=== PATIENT | male | born 1955 | race Caucasian/White ===

== ENCOUNTER → 2017-07-06 | Outpatient (CLI) | payer BC ==
[~2017-07-06] MED LIST: ASCO500C9 PO; ASPI-757 PO; ATOR40TA24 PO; ATOR40TA69 PO; B SUPPLEMENT; BARIUM SULFATE 176 GM BTL PO ONE; BARIUM SULFATE 340 GM POWD ONE; CAR6.25 PO; CETI-176 PO; CETI10CA8 PO; CIP500 PO; DOCU-416 PO; DOCU50LI19 PO; FLUT16SP19 NS; FLUT16SP20 NS; FLUT1DIS27 IH; FLUT9.9S NS; IBUP-1618 PO; IOPAMIDOL 76% 75 ML INFUS BTL 75 ML ONE; LISI-362 PO; LOSA25TA51 PO; MACA500C2 PO; MELA1TAB17 PO; MELA1TAB27 PO; MORS15 PO; MULT-1081 PO; NITR0.4T3 SL; NS 0.9% 20 ML SDV 40 ML ONE; OMEP-218 PO; OMEP40CA48 PO; PAN40 PO; PSE30 PO; RANI-315 PO; RANI150C17 PO; TAMS0.4C69 PO; TEST100V5 IM; TEST200V IM; TRA50 PO; TRAM-420 PO; TRAM100T22 PO; [UNRECOGNIZED DRUG - CODE] PO; [UNRECOGNIZED DRUG - OTHER]; [UNRECOGNIZED DRUG - OTHER] PO
--- NOTE | 2017-07-06 10:47 | RADIOLOGY IMAGING REPORT ---
FACILITY: [facility] PATIENT NAME: Jake Padron : 1955 MR: [id number] V: [id number] EXAM DATE: ORDERING PHYSICIAN: SUE MEJIA TECHNOLOGIST: Location: [facility] [place] Patient: Jake Padron : 1955 Visit/Account:[id number] Date of Sevice: 07/06/2017 ABDOMEN/PELVIS WITH CONTRAST HISTORY: Recurrent ventral incisional hernia TECHNIQUE: Following administration of IV contrast contiguous axial images acquired through the abdom en/pelvis. Coronal and sagittal reformatting also performed. CONTRAST: 75 mL Isovue-370 COMPARISON: June 07, 2011 FINDINGS: Visualized lung bases: There is linear scarring in the lower lung durant Hepatobiliary: Negative. Spleen: Negative. Adrenals: Negative. Pancreas: Negative. Kidneys ureters or bladder: There is mild perinephric stranding bilaterally. There is a 1 cm nonobst ructing calculus lower pole of the left kidney. Bladder wall is mildly thickened although may be rel ated to underdistention with urine. Genitalia: Prostate gland is moderately enlarged and impinges upon the floor the bladder GI: There is a large hiatal hernia. There is a moderate amount of fecal material seen throughout co shawn which can be seen with constipation. Vessels/spaces/nodes: There are mild vascular calcifications present. There are multiple ventral hernias. Just below the umbilicus there is a ventral hernia containing om entum. The hernia opening measures 2.1 cm in diameter. This appears unchanged There is a tiny umbilical hernia containing fat with opening measuring approximately 9 mm in diameter . This is not appreciated on the prior study. Above the level of the umbilicus in the midline there is a small ventral hernia containing fat with opening measuring 1 cm. .. This also appears unchanged In the upper abdomen there are two ventral hernias one to the right of midline with the hernia openin g containing omentum and measuring 1.2 cm in diameter. . This was not appreciated on the prior study . The one to the left of midline measures 1.7 cm at the opening also containing omentum. This appears unchanged Bones/soft tissues: Please see above discussion concerning the ventral hernias. There are very mild spondylotic changes lumbar spine. Additional findings: None pertinent. IMPRESSION: There are multiple ventral hernias as detailed above. Some appear unchanged. There is a tiny umbili doreen hernia containing fat and a small ventral hernia to the right of midline in the upper abdomen con taining omentum that were not appreciated on the prior study 1 cm nonobstructing calculus lower pole the left kidney. Moderate prostatic enlargement impinging upon the floor the bladder Large hiatal hernia Moderate amount of fecal material throughout colon which can be seen with constipation Report Dictated By: Maren Romero MD at 07/06/2017 10:21 AM Report E-Signed By: Maren Romero MD at 07/06/2017 10:43 AM WSN:[email or web address]
--- NOTE | 2017-07-06 16:57 | RADIOLOGY IMAGING REPORT ---
FACILITY: [facility] - [place] PATIENT NAME: Jake Padron : 1955 MR: [id number] V: [id number] EXAM DATE: ORDERING PHYSICIAN: SUE MEJIA TECHNOLOGIST: Location: [facility] [place] Patient: Jake Padron : 1955 Visit/Account:[id number] Date of Sevice: 07/06/2017 Exam type: UPPER GI SERIES W/O AIR History: Reflux, feeling of aspiration and difficulty swallowing Comparison: None. Findings: Double contrast upper GI series was performed with thick and thin barium. There is marked spasm and mucosal irregularity seen in the hypopharynx and cervical esophagus. There was reflux of the barium into the piriform sinuses. There is a focal narrowing at the junction of the cervical and thoracic esophagus. There is a large hiatal hernia. There is moderate gastroes ophageal reflux observed. No other abnormality the stomach duodenal bulb or duodenal C-loop was seen . The fluoroscopy dose area product was 423.69 micro-Tan per meter squared IMPRESSION: 1. There is marked spasm and mucosal irregularity in the hypopharynx and cervical esophagus. There is also focal narrowing at the junction of the cervical and thoracic esophagus. There is reflux of b arium in the piriform sinuses. There is a large hilar hernia with moderate gastric esophageal reflux. Report Dictated By: Maren Romero MD at 07/06/2017 4:47 PM Report E-Signed By: Maren Romero MD at 07/06/2017 4:54 PM WSN:[email or web address]
== END ==
LOC: CT 02:45
PROVIDERS: ATTEND Surgery
DX: N20.0 Calculus of kidney (principal); N40.0 Benign prostatic hyperplasia without lower urinary tract symptoms; K44.9 Diaphragmatic hernia without obstruction or gangrene; K43.9 Ventral hernia without obstruction or gangrene; K42.9 Umbilical hernia without obstruction or gangrene
CPT/HCPCS: 74177; 74240; J7050; Q9967

== ENCOUNTER 2017-08-02 00:43 | Day surgery (SDC) | payer BC ==
[2017-08-02] VITALS (7 sets, daily range): BP systolic 84–121; BP diastolic 46–98
[~2017-08-02] VITALS: Ht 175.3 cm; Wt 77.1 kg
[~2017-08-02 00:43] MED LIST changes: -BARIUM SULFATE 176 GM BTL PO ONE; -BARIUM SULFATE 340 GM POWD ONE; +CALC500T6 PO; +CHOL200074 PO; -IOPAMIDOL 76% 75 ML INFUS BTL 75 ML ONE; +MAGN250T34 PO; -NS 0.9% 20 ML SDV 40 ML ONE
[2017-08-02] MEDS ORDERED: MIDAZOLAM 2 MG/2 ML VIAL IVP PRN (07:40)
[2017-08-02] MEDS ORDERED: NORMOSOL R SOLN(*) 1000 ML BAG 1,000 ML IV PRN (07:40)
[2017-08-02] MEDS ORDERED: LIDOCAINE/SOD BICARB 8.4% SYR ID ONE (07:40)
--- NOTE | 2017-08-02 09:15 | Short(Outpt) Discharge Summary ---
Discharge Summary Reason for Hosp/Final Diag: (1) GERD (gastroesophageal reflux disease) Status: Chronic Hospital Course & Plan: EGD completed without problems. Departure Discharge to: Home, Self Care Discharge Instructions Home Meds Active Scripts Lisinopril (LISINOPRIL) 10 Mg Tablet, 1 TAB PO QDAY, #90 TAB Prov:MASOUD KEY DNP [facility] 07/07/17 Omeprazole (OMEPRAZOLE) 40 Mg Capsule.dr, 1 TAB PO QDAY for 90 Days, #90 CAP 0 Refills Prov:MASOUD KEY DNP [facility] 06/13/17 Atorvastatin Calcium (ATORVASTATIN CALCIUM) 40 Mg Tablet, 1 TAB PO QDAY for 90 Days, #90 TAB 1 Refill Prov:MASOUD KEY DNP [facility] 06/13/17 Carvedilol (CARVEDILOL) 6.25 Mg Tab, 1 TAB PO QDAY for 90 Days, #90 TAB 1 Refill Prov:MASOUD KEY DNP [facility] 06/13/17 Cetirizine Hcl (ZYRTEC) 10 Mg Tablet, 1 TAB PO QDAY for 90 Days, #90 TAB 3 Refills Prov:MASOUD KEY DNP [facility] 06/13/17 Fluticasone Prop 50 Mcg Ns (FLONASE 50 MCG NS) 16 Gm [place].susp, 2 SPRAYS NS QDAY, #1 BOT 11 Refills Prov:MASOUD KEY DNP [facility] 06/13/17 Tramadol Hcl (TRAMADOL HCL) 50 Mg Tablet, 1 TAB PO Q4-6H Y for PAIN, #60 TAB 0 Refills Prov:MASOUD KEY DNP [facility] 06/13/17 Testosterone Cypionate (TESTOSTERONE CYPIONATE) 200 Mg/1 Ml Vial, 200 MG IM Q2WK , #6 VIAL 3 Refills Prov:MASOUD KEY DNP [facility] 06/12/17 Reported Medications Cholecalciferol (Vitamin D3) (VITAMIN D-3) 2,000 Unit Capsule, 2000 UNIT PO QDAY , CAPSULE 07/24/17 Magnesium Oxide (MAGNESIUM) 250 Mg Tablet, 500 MG PO QDAY, TAB 07/24/17 Calcium Carbonate (CALCIUM) 500 Mg Tablet, 1000 MG PO QDAY 07/24/17 [Oshwaganda] No Conflict Check 06/12/17 Docusate Sodium (COLACE) 100 Mg Capsule, 100 MG PO BID, CAPSULE 04/11/17 Melatonin/Pyridoxine (MELATONIN 3 MG TABLET) 1 Each Tablet, 2 EACH PO HS 08/28/14 Aspirin (ASPIRIN) 325 Mg Tablet, 325 MG PO QDAY, TAB 08/28/14 Ascorbic Acid (VITAMIN C) 500 Mg Capsule.er, 500 MG PO QDAY 08/28/14 Multivitamin (MULTI-DAY VITAMINS) 1 Each Tablet, 1 EACH PO QDAY 08/28/14 Follow up Referrals: General Surgery - 08/15/17 @ Surgery, General with Sue Mejia Md You have a follow up appointment scheduled with Dr. Mejia on 08/15/17, at 11: 00am. Diet: Regular Activity: As Tolerated Problem Qualifiers (1) GERD (gastroesophageal reflux disease): Esophagitis presence: without esophagitis Qualified Codes: K21.9 - Gastro- esophageal reflux disease without esophagitis SUE MEJIA MD Aug 02, 2017 09:15
[2017-08-02] MEDS ORDERED: PROPOFOL(*)1000 MG/100 ML VIAL 100 ML ONE (12:36)
== END 2017-08-02 10:45 | disposition home or self-care (01) ==
LOC: OR 00:43
PROVIDERS: ATTEND Surgery
DX: K44.9 Diaphragmatic hernia without obstruction or gangrene (principal)
CPT/HCPCS: 43235; J2704

== ENCOUNTER → 2017-10-03 | Outpatient (CLI) | payer BC ==
--- NOTE | 2017-10-03 14:39 | EKG ---
FACILITY: [facility] [place] PATIENT NAME: SAHARA DUBON : [id number] MR: [id number] V: [id number] EXAM DATE: ORDERING PHYSICIAN: JOHN PEDROZA TECHNOLOGIST: AMARI Marino Reason : GASTRIC FELUX Blood Pressure : / mmHG Vent. Rate : 105 BPM Atrial Rate : 105 BPM P-R Int : 154 ms QRS Dur : 122 ms QT Int : 360 ms P-R-T Axes : 046 200 019 degrees QTc Int : 475 ms Sinus tachycardia Right bundle branch block Abnormal ECG When compared with ECG of 11-APR-2017 20:19, Relatively unchanged Confirmed by LAUREN WEST ([id number]) on 10/03/2017 4:18:50 PM Referred By: Confirmed By:LAUREN WEST
== END ==
LOC: LAB 14:14
PROVIDERS: ATTEND Surgery
DX: I45.10 Unspecified right bundle-branch block (principal); R00.0 Tachycardia, unspecified; R94.31 Abnormal electrocardiogram [ECG] [EKG]; K21.9 Gastro-esophageal reflux disease without esophagitis; K44.9 Diaphragmatic hernia without obstruction or gangrene; K43.2 Incisional hernia without obstruction or gangrene
CPT/HCPCS: 36415; 82310; 82374; 82435; 82565; 82947; 84132; 84295; 84520; 85027; 93005

== ENCOUNTER 2017-10-07 11:54 | Emergency (ER) | payer BC ==
[2017-10-07] MEDS ORDERED: CAR6.25 PO (12:08)
[2017-10-07] MEDS ORDERED: LORazepam 2 MG/ML VIAL IVP ONE (12:10)
[2017-10-07] MEDS ORDERED: fentaNYL CITR 100 MCG/2 ML AMP IVP ONE (12:10)
--- NOTE | 2017-10-07 12:35 | ER Report ---
History and Physical Time Seen By MD: 12:00 Hx. of Stated Complaint: Pt having hernia repair on monday at [facility]. Pt woke up with severe abdominal pain and patient states abdomen is distended and normally appears flat. HPI/ROS CHIEF COMPLAINT: Hernia pain HISTORY OF PRESENT ILLNESS: Patient is a 62-year-old male who presents the ED with complaint of an incarcerated hernia. He states that he has been having troll with an umbilical hernia in the past few years. He states that he has had to come to the emergency department 4 times total for this to have it reduced. He states that normally he is able to reduce his umbilical hernia at home but states that he was unable to do that today. He states that he woke up with this about 4 hours ago and has been having increasing pain. He denies any nausea or vomiting. He states that he has had multiple abdominal surgeries in the past but none for his umbilical hernia. He is at she scheduled to have his umbilical hernia repaired in 3 days at [facility]. Patient states he just wants a medication and to have this reduced here. REVIEW OF SYSTEMS: Constitutional: No fever, no chills. Cardiovascular: No chest pain, no palpitations. Respiratory: No cough, no shortness of breath. Gastrointestinal: See history of present illness. Genitourinary: No hematuria. Musculoskeletal: No back pain. Skin: No rashes. Neurological: No headache. Allergies: Coded Allergies: propoxyphene (Verified Allergy, Intermediate, HALLUCINATIONS, 04/11/17) Home Meds Active Scripts Testosterone Cypionate (TESTOSTERONE CYPIONATE) 200 Mg/1 Ml Vial, 200 MG IM Q2WK , #6 VIAL 3 Refills Prov:MASOUD KEY DNP, FNP-BC 08/29/17 Lisinopril (LISINOPRIL) 10 Mg Tablet, 1 TAB PO QDAY, #90 TAB Prov:MASOUD KEY DNP, FNP-BC 07/07/17 Omeprazole (OMEPRAZOLE) 40 Mg Capsule., 1 TAB PO QDAY for 90 Days, #90 CAP 0 Refills Prov:MASOUD KEY DNP, FNP-BC 06/13/17 Atorvastatin Calcium (ATORVASTATIN CALCIUM) 40 Mg Tablet, 1 TAB PO QDAY for 90 Days, #90 TAB 1 Refill Prov:MASOUD KEY DNP, FNP-BC 06/13/17 Carvedilol (CARVEDILOL) 6.25 Mg Tab, 1 TAB PO QDAY for 90 Days, #90 TAB 1 [facility] 06/13/17 Cetirizine Hcl (ZYRTEC) 10 Mg Tablet, 1 TAB PO QDAY for 90 Days, #90 TAB 3 Refills Prov:[facility]ASOUD G[facility]ales [facility] 06/13/17 Fluticasone Prop 50 Mcg Ns (FLONASE 50 MCG NS) 16 Gm [place].susp, 2 SPRAYS NS QDAY, #1 BOT 11 Refills Prov:[facility]OUD [facility] 06/13/17 Tramadol Hcl (TRAMADOL HCL) 50 Mg Tablet, 1 TAB PO Q4-6H Y for PAIN, #60 TAB 0 Refills Prov:[facility]ASOUD [facility]ales [facility] 06/13/17 Reported Medications Carvedilol (CARVEDILOL) 6.25 Mg Tab, 6.25 MG PO BID, TAB 10/07/17 Cholecalciferol (Vitamin D3) (VITAMIN D-3) 2,000 Unit Capsule, 2000 UNIT PO QDAY , CAPSULE 07/24/17 Magnesium Oxide (MAGNESIUM) 250 Mg Tablet, 500 MG PO QDAY, TAB 07/24/17 Calcium Carbonate (CALCIUM) 500 Mg Tablet, 1000 MG PO QDAY 07/24/17 [Oshwaganda] No Conflict Check 06/12/17 Docusate Sodium (COLACE) 100 Mg Capsule, 100 MG PO BID, CAPSULE 04/11/17 Melatonin/Pyridoxine (MELATONIN 3 MG TABLET) 1 Each Tablet, 2 EACH PO HS 08/28/14 Aspirin (ASPIRIN) 325 Mg Tablet, 325 MG PO QDAY, TAB 08/28/14 Ascorbic Acid (VITAMIN C) 500 Mg Capsule.er, 500 MG PO QDAY 08/28/14 Multivitamin (MULTI-DAY VITAMINS) 1 Each Tablet, 1 EACH PO QDAY 08/28/14 Reviewed Nurses Notes: Yes Old Medical Records Reviewed: Yes Hx Smoking: No Smoking Status: Never Smoker Hx Substance Use Disorder: No Hx Alcohol Use: No Constitutional Vital Sign - Last 24 Hours 10/07/17 11:59 Temp 98.7 Pulse 83 Resp 16 B/P (MAP) 128/86 Pulse Ox 96 O2 Delivery Room Air Physical Exam General Appearance: The patient is alert, has no immediate need for airway protection and no signs of toxicity. Patient appears to be in some mild distress. Eyes: Pupils equal and round no pallor or injection. ENT, Mouth: Mucous membranes are moist. Respiratory: There are no retractions, lungs are clear to auscultation. Cardiovascular: Regular rate and rhythm. Gastrointestinal: There is an obvious umbilical hernia that is slightly off to the left side. This area is tender to palpation. Normal bowel sounds in all 4 quadrants. Skin: Warm and dry, no rashes. Musculoskeletal: Neck is supple non tender. Extremities are nontender, nonswollen and have full range of motion. DIFFERENTIAL DIAGNOSIS: After history and physical exam differential diagnosis was considered for abdominal pain including but not limited to appendicitis, cholecystitis, gastritis and urinary tract infection. Medical Decision Making Data Points Result Diagram: 10/07/17 1236 10/07/17 1236 Laboratory Hematology Test 10/07/17 12:36 Red Blood Count 5.27 M/uL (4.00-5.60) Mean Corpuscular Volume 93.9 fL (80.0-96.0) Mean Corpuscular Hemoglobin 32.2 pg (26.0-33.0) Mean Corpuscular Hemoglobin Concent 34.3 g/dL (32.0-36.0) Red Cell Distribution Width 12.6 % (11.5-14.5) Mean Platelet Volume 7.8 fL (7.2-11.1) Prothrombin Time 13.2 seconds (12.0-14.4) Prothromb Time International Ratio 1.00 Activated Partial Thromboplast Time 30 seconds (23-35) Sodium Level 139 mmol/L (137-145) Potassium Level 4.7 mmol/L (3.5-5.0) Chloride Level 100 mmol/L (98-107) Carbon Dioxide Level 27 mmol/L (22-30) Blood Urea Nitrogen 14 mg/dl (9-21) Creatinine 1.20 mg/dl (0.66-1.25) Glomerular Filtration Rate Calc > 60.0 Random Glucose 91 mg/dl (75-110) Calcium Level 9.5 mg/dl (8.4-10.2) Total Bilirubin 0.6 mg/dl (0.2-1.3) Aspartate Amino Transf (AST/SGOT) 33 U/L (0-35) Alanine Aminotransferase (ALT/SGPT) 31 U/L (0-56) Alkaline Phosphatase 105 U/L (0-126) Total Protein 7.9 gm/dl (6.3-8.2) Albumin 3.9 g/dl (3.5-5.0) Chemistry Test 10/07/17 12:36 White Blood Count 5.3 k/uL (4.5-11.0) Red Blood Count 5.27 M/uL (4.00-5.60) Hemoglobin 17.0 g/dL (14.0-18.0) Hematocrit 49.5 % (42.0-52.0) Mean Corpuscular Volume 93.9 fL (80.0-96.0) Mean Corpuscular Hemoglobin 32.2 pg (26.0-33.0) Mean Corpuscular Hemoglobin Concent 34.3 g/dL (32.0-36.0) Red Cell Distribution Width 12.6 % (11.5-14.5) Platelet Count 218 K/uL (150-450) Mean Platelet Volume 7.8 fL (7.2-11.1) Prothrombin Time 13.2 seconds (12.0-14.4) Prothromb Time International Ratio 1.00 Activated Partial Thromboplast Time 30 seconds (23-35) Glomerular Filtration Rate Calc > 60.0 Calcium Level 9.5 mg/dl (8.4-10.2) Total Bilirubin 0.6 mg/dl (0.2-1.3) Aspartate Amino Transf (AST/SGOT) 33 U/L (0-35) Alanine Aminotransferase (ALT/SGPT) 31 U/L (0-56) Alkaline Phosphatase 105 U/L (0-126) Total Protein 7.9 gm/dl (6.3-8.2) Albumin 3.9 g/dl (3.5-5.0) Coagulation Test 10/07/17 12:36 Prothrombin Time 13.2 seconds Prothromb Time International Ratio 1.00 Activated Partial Thromboplast Time 30 seconds ED Course/Re-evaluation ED Course Will obtain labs. Patient will be given 50 g of fentanyl IV and 1 mg Ativan IV and will attempt reduction. 10/07/2017 1:14:37 pm - manual reduction of the umbilical hernia was completed with pt in the Trendelenburg position. This was successful. Patient tolerated procedure well. Decision to Disposition Date: October 07, 2017 Decision to Disposition Time: 13:14 Depart Departure Latest Vital Signs Vital Signs Date Time Temp Pulse Resp B/P (MAP) Pulse Ox O2 Delivery O2 Flow Rate FiO2 10/07/17 11:59 98.7 83 16 128/86 96 Room Air Impression: Primary Impression: Strangulated umbilical hernia Condition: Improved Disposition: HOME OR SELF-CARE Referrals: MASOUD KEY DNP, CHIEF CLOTH FINISHING RANGE OPERATOR-BC (PCP) Patient Instructions: Umbilical Hernia (ED) Additional Instructions: Follow-up with surgery as scheduled in 3 days. If having any worsening or concerning symptoms may return to the emergency department. JOSE VALENTIN PA-C October 07, 2017 12:35
[2017-10-07 13:00] VITALS: BP 115/86
== END 2017-10-07 13:26 | disposition home or self-care (01) ==
LOC: ER 12:18
DX: K42.0 Umbilical hernia with obstruction, without gangrene (principal)
CPT/HCPCS: 85027; 85610; 85730; 96374; 96375; 99284; J2060; J3010; 82040; 82247; 82310; 82374; 82435; 82565; 82947; 84075; 84132; 84155; 84295; 84450; 84460; 84520

== ENCOUNTER → 2017-10-20 | Outpatient (CLI) | payer BC ==
[~2017-10-20] MED LIST changes: +DIAZ-308 PO; +LEVO750T44 PO
== END ==
LOC: LAB 10:44
PROVIDERS: ATTEND Internal Medicine Cardiovascular Disease
DX: I25.10 Atherosclerotic heart disease of native coronary artery without angina pectoris (principal)
CPT/HCPCS: 36415; 83880

== ENCOUNTER → 2017-11-13 | Outpatient (CLI) | payer BC | LOC: NUC 00:59 | PROVIDERS: ATTEND Internal Medicine Cardiovascular Disease | DX: I25.10 Atherosclerotic heart disease of native coronary artery without angina pectoris (principal) ==

== ENCOUNTER → 2018-03-26 | Outpatient (CLI) | payer BC ==
[~2018-03-26] MED LIST changes: +PANT40TA65 PO; +REGADENOSON 0.4 MG/5 ML SYR ONE; +TAMS0.4C25 PO
--- NOTE | 2018-03-26 17:49 | RADIOLOGY IMAGING REPORT ---
[place] [facility] [place]: [place] Padron : 1955 MR: [id number] V: [id number] EXAM DATE: ORDERING PHYSICIAN: NENITA JO TECHNOLOGIST: Location: [facility] Patient: Jake Padron : 1955 Visit/Account:[id number] Date of Sevice: 03/26/2018 EXAMINATION: Single isotope SPECT imaging with regadenoson infusion and gated SPECT imaging. DATE OF EXAMINATION: 03/26/2018. DATE OF INTERPRETATION: 03/26/2018. REQUESTING PHYSICIAN: NENITA JO. INDICATION: The patient is a 62-year-old male evaluated for CAD. PROCEDURE: After informed consent the patient received an intravenous injection of 12.4 mCi of Tc-99 m sestamibi followed at an appropriate time interval by rest imaging. The patient then subsequently received an intravenous infusion of 0.4 mg of regadenoson per protocol without complication. Resting heart rate was 83 bpm with a peak heart rate of 114 bpm. Blood pressure at rest was 98 / 69 and fol lowing infusion was 110 / 73. Baseline EKG demonstrates sinus rhythm with right bundle branch block. There were no EKG changes of ischemia following infusion. Symptoms were nonspecific. The patient then received an intravenous injection of 28.7 mCi of Tc-99m sestamibi followed by stress imaging. RAW DATA: Examination of the summed raw data revealed a good quality study. MYOCARDIAL PERFUSION: The tomographic images demonstrate normal perfusion rest and stress. GATED IMAGES: The gated images demonstrate normal regional wall motion and thickening LVEF 61%. IMPRESSION: 1. Nondiagnostic Lexiscan stress ECG 2. Normal myocardial perfusion scan. 3. Normal LV systolic function; LVEF 61%. Report Dictated By: Clem Rodriguez MD at 03/26/2018 5:40 PM Report E-Signed By: Clem Rodriguez MD at 03/26/2018 5:45 PM WSN:[id number]
--- NOTE | 2018-03-26 19:35 | RT STRESS TEST REPORT ---
[place] [facility] [place] NAME: SAHARA DUBON : [id number] MR: [id number] V: [id number] EXAM DATE: ORDERING PHYSICIAN: JOSE J GARCIA TECHNOLOGIST: [employer] Time: 2018-03-26 14:27:59 Total Exercise Time: 00:01:00 Test Indications: CAD Medications: SEE NUC MED SHEET Protocol: LEXISCAN Max HR: 120 BPM 76% of Pred: 156 BPM Max BP: 111/073 mmHG Max Work Load: 1.0 METS The patient has a baseline RBBB. There was no chest pain during the test and no ST depression. See the nuclear images for details. Confirmed by LAUREN WEST ([id number]) on 03/26/2018 7:35:40 PM Referred By: Jose J Garcia Overread By: LAUREN EWST
== END ==
LOC: NUC 03:16
PROVIDERS: ATTEND Internal Medicine Cardiovascular Disease
DX: I25.10 Atherosclerotic heart disease of native coronary artery without angina pectoris (principal); I45.10 Unspecified right bundle-branch block
CPT/HCPCS: 78452; 93017; A9500; J2785

== ENCOUNTER → 2018-06-08 | Outpatient (CLI) | payer MEDICARE, OTHER ==
[~2018-06-08] MED LIST changes: -REGADENOSON 0.4 MG/5 ML SYR ONE
== END ==
LOC: LAB 11:22
PROVIDERS: ATTEND Surgery
DX: L82.1 Other seborrheic keratosis (principal)
CPT/HCPCS: 88305

== ENCOUNTER → 2018-06-29 | Outpatient (CLI) | payer MEDICARE, OTHER ==
[~2018-06-29] MED LIST changes: +TEST100V6 IM
--- NOTE | 2018-06-29 15:06 | RADIOLOGY IMAGING REPORT ---
FACILITY: [facility] PATIENT NAME: Jake Padron : 1955 MR: [id number] V: [id number] EXAM DATE: ORDERING PHYSICIAN: JONATHAN WILBURN TECHNOLOGIST: Location: [facility] Patient: Jake Padron : 1955 Visit/Account:[id number] Date of Sevice: 06/29/2018 Exam type: KUB SINGLE VIEW ABDOMEN History: kidney stone Comparison: CT of abdomen pelvis fibroid first 2018. Findings: Bowel gas pattern is nonspecific. Projecting over the inferior left renal shadow is a 1.25 x 0.8 cm calcification likely representing calcification seen on the prior CT there is no gross evidence of or ganomegaly. Visualized bones are unremarkable for age IMPRESSION: 1. There is a 1.25 x 0.8 cm calcification projecting over the inferior left renal shadow likely the calcification seen on the prior CT Report Dictated By: Maren Romero MD at 06/29/2018 2:54 PM Report E-Signed By: Maren Romero MD at 06/29/2018 3:01 PM WSN:[email or web address]
== END ==
LOC: RAD 14:24
PROVIDERS: ATTEND Urology
DX: N20.0 Calculus of kidney (principal)
CPT/HCPCS: 74018

== ENCOUNTER → 2018-09-27 | Outpatient (CLI) | payer MEDICARE, OTHER ==
--- NOTE | 2018-09-27 16:01 | RADIOLOGY IMAGING REPORT ---
FACILITY: [facility] PATIENT NAME: Jake Padron : 1955 MR: [id number] V: [id number] EXAM DATE: ORDERING PHYSICIAN: MASOUD KEY TECHNOLOGIST: Location: [facility] [place] Patient: Jake Padron : 1955 Visit/Account:[id number] Date of Sevice: 09/27/2018 XR THORACIC SPINE 3 V COMPARISONS: None. ADDITIONAL PERTINENT HISTORY: Chronic pain which has increased. FINDINGS: Postoperative changes: Patient status post previous posterior interbody fusion with laminar rods and books in place extending from the upper thoracic spine through the level of T8. Vertebral body heights and alignment: Mild increase in kyphosis along the thoracic spine. Mild loss o f height at the level of T9. Moderate loss of height at the level of T4. Vertebral bodies: Mild compression fracture at the level of T9. Moderate compression fracture at T4. Mild anteriorly directed osteophytes involving the lower thoracic spine. Disc spaces: Mild disc space narrowing involving the lower thoracic spine Cervicothoracic junction: Negative. Surrounding soft tissues: Negative. IMPRESSION: 1. Moderate likely remote compression fracture at the level of T4. 2. Mild likely remote compression fracture at the level of T9. 3. Postoperative changes as detailed above. Report Dictated By: Von Gomez MD at 09/27/2018 3:53 PM Report E-Signed By: Von Gomez MD at 09/27/2018 3:55 PM WSN:[id number]
== END ==
LOC: RAD 15:17
PROVIDERS: ATTEND Nurse Practitioner Primary Care
DX: M54.9 Dorsalgia, unspecified (principal)
CPT/HCPCS: 72072

== ENCOUNTER → 2018-10-04 | Outpatient (CLI) | payer MEDICARE, OTHER ==
--- NOTE | 2018-10-04 17:06 | RADIOLOGY IMAGING REPORT ---
FACILITY: [facility] - [place] PATIENT NAME: Jake Padron : 1955 MR: [id number] V: [id number] EXAM DATE: ORDERING PHYSICIAN: MASOUD KEY TECHNOLOGIST: [place] [facility] [place] : 1955 Visit/Account:[id number] Date of Sevice: 10/04/2018 DEXA Scan Clinical history: Osteopenia. Comparison: DEXA scan from 11/17/2016. LUMBAR SPINE: The bone mineral density (BMD) measured from L1-L4 correlates with a Z-score of -1 and a T-score of - 1.4 which is osteopenia as defined by the World Health Organization. The corresponding risk of fract ure in the lumbar spine is 2-3 times increased compared with a young adult reference population. Thi s value has decrease by 0.2 % since the prior study. More than 5% change is considered significant. HIP: Bone mineral density (BMD) measured in the LEFT total hip region correlates with a Z-score 0.5 and a T-score of zero which is normal as defined by the World Health Organization. The corresponding risk of fracture in the hip is Not i ncreased compared to a young adult reference population. This value has increase by 2.9 % since the p rior study. More than 5% change is considered significant. T score left femoral neck -1.3 Bone mineral density (BMD) measured in the Femoral Neck region measures 0.900 g/cm?. IMPRESSION: 1. Lumbar spine: Osteopenia. There has been 0.2% decrease in the bone mineral density since the pre vious exam. 2. Left Total Hip: Normal. There has been 2.9% increase in the bone mineral density since the previ ous exam. 3. Femoral Neck: Bone Mineral Density is 0.900 g/cm? The next DEXA scan of this patient should include the following sites: L1-L4 and the left hip. FRAX? WHO Fracture Risk Assessment Tool link: <http://www.shef.ac.uk/FRAX/tool.jsp?locationValue=9> PLEASE NOTE: 1) The World Health Organization defines low BMD as follows: T-score Normal > -1 Osteopenia < -1 and > -2.5 Osteoporosis < -2.5 without fractures Established osteoporosis < -2.5 with fractures 2) In general, you may wish to consider: Diagnosis Treatment Follow-up DEXA Normal BMD Prevention 2-3 years Osteopenia Prevention/therapy 1-2 years Osteoporosis Therapy Yearly 3) Fracture risk estimated from the T-score is more accurate for vertebral fractures (often spontane ous) than for hip fractures. Report Dictated By: Maren Romero MD at 10/04/2018 4:59 PM Report E-Signed By: Maren Romero MD at 10/04/2018 5:01 PM WSN:[email or web address]
--- NOTE | 2018-10-04 18:05 | RADIOLOGY IMAGING REPORT ---
FACILITY: [facility] [place] PATIENT NAME: Jake Padron : 1955 MR: [id number] V: [id number] EXAM DATE: ORDERING PHYSICIAN: MASOUD KEY TECHNOLOGIST: Location: [facility] Patient: Jake Padron : 1955 Visit/Account:[id number] Date of Sevice: 10/04/2018 KIDNEYS EXAMINATION: Renal ultrasound. History: Elevated serum creatinine COMPARISON STUDIES: CT on pelvis July 06, 2017 FINDINGS: Kidneys: Right kidney- 10.6 x 6.2 x 5.9 cm Left kidney- 11.7 x 6 x 4.5 cm Uniform and symmetric blood flow in each kidney by Doppler ultrasound. Hydronephrosis: none There is cortical thinning on the right. The renal parenchyma is echogenic bilaterally which can be seen with medical renal disease. There is a 8 mm cyst lower pole the right kidney. Resistive index on the right 0.57 and on the left 0.60 Bladder: Prevoid volume 9 mL. Post void residual 3 mm. Bilateral ureteral jets are present.. The p rostate gland appears prominent impinging upon the floor the bladder Abdominal aorta and IVC: Aorta and IVC are patent by Doppler ultrasound. IMPRESSION: 8 mm cyst lower pole the right kidney Cortical thinning on the right Report Dictated By: Maren Romero MD at 10/04/2018 5:59 PM Report E-Signed By: Maren Romero MD at 10/04/2018 6:01 PM WSN:[id number]
== END ==
LOC: US 00:30
PROVIDERS: ATTEND Nurse Practitioner Primary Care
DX: M85.88 Other specified disorders of bone density and structure, other site (principal); N28.1 Cyst of kidney, acquired
CPT/HCPCS: 76705; 77080